=== PATIENT | male | born 1990 | race African-American/Black ===

== ENCOUNTER 2021-11-08 15:56 | Observation (INO) ==
[2021-11-08] MEDS ORDERED: ALBUTEROL/IPRATROPIUM 3 ML NEB RESP TX STA ×2 (16:58→18:55)
[2021-11-08] MEDS ORDERED: methylPREDNISolone SOD SUC 125 MG/2 ML VIAL IV STA (16:58)
[2021-11-08 17:19] LABS: Basophils % 0.2 % (0.0-0.8); Eosinophils # 0.2 10*3/uL (0.0-0.87); Eosinophils % 2.2 % (0.00-10.9); Hematocrit 43.8 VOL% (42.0-52.0); Hemoglobin 14.8 GM/DL (14.0-18.0); Immature Granulocytes % 0.3 %; Immature Granulocytes Absolute 0.03 #; Lymphocytes # 2.1 10*3/uL (1.4-4.0); Lymphocytes % 21.5 % (21.2-54.2); Mean Corpuscular HGB Conc 33.8 GM/DL (32-36); Mean Corpuscular Volume 96.3 FL (87-102); Mean Platelet Volume 9.8 FL (9.6-12.0); Monocytes # 1.1 10*3/uL (0.11-0.8); Monocytes % 10.8 % (1.7-12.7); Platelet Count 363 T/CUMM (130-400); Red Blood Count 4.55 MC/CUMM (3.8-5.5); Red Cell Distribution Width 14.7 % (9.3-17.3); White Blood Count 9.7 T/CUMM (4-12)
[2021-11-08 17:38] LABS: Albumin 3.9 G/DL (3.4-5.0); Bilirubin,Total 0.6 MG/DL (0.20-1.00); Calcium 10.2 MG/DL (8.5-10.1); Potassium 4.1 MMOL/L (3.5-5.1); Total Protein 8.5 G/DL (6.4-8.2)
[2021-11-08] MEDS ORDERED: ONDANSETRON 4 MG/2 ML VIAL IV PRN (19:33)
[2021-11-08] MEDS ORDERED: GLUCAGON 1 MG VIAL IM PRN (19:33)
[2021-11-08] MEDS ORDERED: guaiFENesin/DM ER 600-30 MG TABLET PO PRN (19:33)
[2021-11-08] MEDS ORDERED: ACETAMINOPHEN 325 MG TABLET PO PRN (19:33)
[2021-11-08] MEDS ORDERED: DEXTROSE 10% 250 ML BAG IV PRN (19:39)
[2021-11-08] MEDS: AZITHROMYCIN INJ 500 MG in SODIUM CHLORIDE 0.9% 250 ML IV SCH (20:13)
[2021-11-08] MEDS ORDERED: SODIUM CHLORIDE 0.9% 500 ML IV ONE (20:19)
[2021-11-08] MEDS: ENOXAPARIN 40 MG/0.4 ML SYRINGE SUBCUT SCH (21:52)
[2021-11-08] MEDS: methylPREDNISolone SOD SUC 40 MG/1 ML VIAL IV SCH (22:38)
[2021-11-08] MEDS: ALBUTEROL/IPRATROPIUM 3 ML NEB RESP TX SCH (23:20)
[2021-11-09] MEDS ORDERED: INSULIN REGULAR 100 UNIT/ML SUBCUT ONE (01:11)
[2021-11-09] MEDS: ALBUTEROL/IPRATROPIUM 3 ML NEB RESP TX SCH ×6 (03:20→23:42)
[2021-11-09 05:15] LABS: Hematocrit 39.7 VOL% (42.0-52.0); Hemoglobin 13.1 GM/DL (14.0-18.0); Immature Granulocytes % 0.4 %; Immature Granulocytes Absolute 0.03 #; Lymphocytes # 0.7 10*3/uL (1.4-4.0); Lymphocytes % 10.2 % (21.2-54.2); Mean Corpuscular Volume 96.6 FL (87-102); Mean Platelet Volume 9.9 FL (9.6-12.0); Monocytes # 0.1 10*3/uL (0.11-0.8); Monocytes % 1.4 % (1.7-12.7); Platelet Count 331 T/CUMM (130-400); Red Blood Count 4.11 MC/CUMM (3.8-5.5); Red Cell Distribution Width 14.5 % (9.3-17.3); White Blood Count 7.2 T/CUMM (4-12)
[2021-11-09 05:43] LABS: Alanine Aminotransferase 25 U/L (16-61); Albumin 3.5 G/DL (3.4-5.0); Alkaline Phosphatase 57 U/L (45-117); Aspartate Amino Transferase 13 U/L (0-37); Bilirubin,Total < 0.39 MG/DL (0.20-1.00); Blood Urea Nitrogen 15 MG/DL (7-18); Calcium 10.5 MG/DL (8.5-10.1); Carbon Dioxide 25 MMOL/L (21-32); Chloride 106 MMOL/L (98-107); Cholesterol 112 MG/DL (50-200); Estimated Glom Filtration Rate 112 ML/MIN; Glucose 171 MG/DL (74-106); HDL Cholesterol 78 MG/DL (40-60); Osmolality,Calculated 277.8 MOS/KG (273-304); Potassium 4.2 MMOL/L (3.5-5.1); Risk Ratio 1.44; Sodium 137 MMOL/L (136-145); Total Protein 7.6 G/DL (6.4-8.2); Triglycerides 37 MG/DL (2-150); VLDL Cholesterol 7.4 MG/DL
[2021-11-09] MEDS: methylPREDNISolone SOD SUC 40 MG/1 ML VIAL IV SCH ×2 (09:12→21:43)
[2021-11-09] MEDS: PANTOPRAZOLE 40 MG TABLET PO SCH (09:12)
[2021-11-09] MEDS: BUDESONIDE 0.5 MG/2 ML NEB RESP TX SCH ×2 (11:38→19:25)
[2021-11-09] MEDS: ENOXAPARIN 40 MG/0.4 ML SYRINGE SUBCUT SCH (21:43)
[2021-11-09] MEDS: AZITHROMYCIN INJ 500 MG in SODIUM CHLORIDE 0.9% 250 ML IV SCH (21:44)
[2021-11-10] MEDS: ALBUTEROL/IPRATROPIUM 3 ML NEB RESP TX SCH ×3 (03:30→11:00)
[2021-11-10 05:09] LABS: Basophils % 0.1 % (0.0-0.8); Hematocrit 35.8 VOL% (42.0-52.0); Hemoglobin 11.8 GM/DL (14.0-18.0); Immature Granulocytes % 0.8 %; Immature Granulocytes Absolute 0.17 #; Lymphocytes # 0.9 10*3/uL (1.4-4.0); Mean Corpuscular Volume 97.8 FL (87-102); Mean Platelet Volume 11.3 FL (9.6-12.0); Monocytes # 1.1 10*3/uL (0.11-0.8); Monocytes % 5.2 % (1.7-12.7); Neutrophils % 89.9 % (38.7-73.9); Platelet Count 286 T/CUMM (130-400); Red Blood Count 3.66 MC/CUMM (3.8-5.5); Red Cell Distribution Width 14.8 % (9.3-17.3); White Blood Count 21.7 T/CUMM (4-12)
[2021-11-10 05:26] LABS: Calcium 9.2 MG/DL (8.5-10.1); Osmolality,Calculated 287.1 MOS/KG (273-304); Potassium 4.2 MMOL/L (3.5-5.1)
[2021-11-10 06:08] LABS: Band Neutrophils 4 % (0-10); Lymphocytes 4 % (20-55); Total Cells Counted 100
[2021-11-10 06:09] LABS: Anisocytosis Slight; Macrocytosis Slight; Platelet Estimate Normal; Spherocytes Few; Target Cells Few
[2021-11-10] MEDS: BUDESONIDE 0.5 MG/2 ML NEB RESP TX SCH (07:13)
[2021-11-10] MEDS: PANTOPRAZOLE 40 MG TABLET PO SCH (09:03)
[2021-11-10] MEDS: methylPREDNISolone SOD SUC 40 MG/1 ML VIAL IV SCH (09:04)
[2021-11-10 12:17] VITALS: BP 114/65
== END 2021-11-10 12:16 | disposition home or self-care (01) ==
LOC: N.ED 15:56 → N.EDINP 15:56 → SUATTDRO 19:32 → N.5E 20:43
PROVIDERS: ADMIT Internal Medicine; ATTEND Family Medicine